=== PATIENT | male | born 1940 | race Caucasian/White ===

== ENCOUNTER → 2017-07-05 | Outpatient (CLI) | payer OTHER ==
[~2017-07-05] MED LIST: AMBIEN 10 MG TA10 MG PO; APAP500 PO; ATENOLOL PO; DEEP SEA NASAL44 M1 NS; DESYREL PO; FIORICET PO; IBUPROFEN 200200 M1 PO; PRILOSEC 20 MG20 MG; UNKNOWN ANTIBIOTIC; ZPAK PO
== END ==
LOC: HYPER 07-04 09:23
DX: L97.513 Non-pressure chronic ulcer of other part of right foot with necrosis of muscle (principal); L89.312 Pressure ulcer of right buttock, stage 2; Z86.711 Personal history of pulmonary embolism; Z72.89 Other problems related to lifestyle

== ENCOUNTER → 2017-08-01 | Outpatient (CLI) | payer OTHER | LOC: HYPER 07:08 | DX: L97.513 Non-pressure chronic ulcer of other part of right foot with necrosis of muscle (principal); L89.312 Pressure ulcer of right buttock, stage 2; I73.9 Peripheral vascular disease, unspecified; Z86.711 Personal history of pulmonary embolism; Z72.89 Other problems related to lifestyle ==